=== PATIENT | female | born 1950 | race Caucasian/White ===

== ENCOUNTER 2022-04-05 01:27 | Emergency (ER) | payer MEDICARE, OTHER ==
[2022-04-05 02:01] LABS: BASOPHIL 0.7 % (0-2); EOSINOPHIL 0.2 % (0-7); HCT 43.3 % (37.0-47.0); HGB 15.4 g/dl (12.5-16.0); MCH 30.7 pg (25.0-31.0); MCHC 35.6 g/dL (32.0-36.0); MCV 86.3 fL (78.0-100.0); MONOCYTE 11.3 % (0-12); MPV 12.1 fL (6.0-9.5); NEUTROPHIL 36.3 % (41-80); NRBC 0; RBC 5.02 M/uL (4.20-5.40); RDW 14.2 % (11.5-14.0); WBC 5.7 K/uL (4.0-10.5)
[2022-04-05 02:02] LABS: LYMPHOCYTE 51.1 % (15-48)
[2022-04-05 02:24] LABS: ALBUMIN 3.5 g/dL (3.4-5.0); BILIRUBIN - TOTAL 5.7 mg/dL (0.2-1.0); BUN/CREAT RATIO (CALC) 28.9 RATIO; CREATININE 0.9 mg/dL (0.51-0.95); GLOBULIN (CALCULATION) 2.5 g/dL; POTASSIUM 3.9 mmol/L (3.5-5.1)
[2022-04-05 02:42] LABS: PLT 42 K/uL (150-400)
[2022-04-05] MEDS ORDERED: ONDANSETRON ODT4 MG PO (04:03)
[2022-04-05] MEDS ORDERED: LYMEPAK100 MG PO (04:03)
== END 2022-04-05 04:35 | disposition home or self-care (01) ==
LOC: FER 01:27
PROVIDERS: Emergency Medicine
DX: R42 Dizziness and giddiness (principal); R11.0 Nausea; R53.83 Other fatigue; R51.9 Headache, unspecified; I10 Essential (primary) hypertension; Z79.899 Other long term (current) drug therapy
CPT/HCPCS: 36415; 70450; 80053; 84484; 85025; 93005; J7030